=== PATIENT | male | born 1960 | race Caucasian/White ===

== ENCOUNTER 2016-06-25 14:14 | Emergency (ER) | payer BC, OTHER ==
[~2016-06-25] VITALS: Ht 170.2 cm; Wt 86.2 kg
[2016-06-25 14:21] VITALS: BP 113/66
--- NOTE | 2016-06-25 15:02 | NUR ---
VONA AFTER SUDDEN ONSET OF DIZZINESS WHILE SHOPPING AT MALL. PT STATES HE VOMITED X1. HX PROSTATE CA, MULTIPLE BACK SURGERIES AND CHRONIC BACK PAIN.SKIN IS pale /WARM/DRY; AAOX4 WITH EVEN AND STEADY GAIT; LUNGS CLEAR BL; HR EVEN AND REGULAR; PT DENIES ANY FEVER, CP, SOB, OR COUGH AT THIS TIME; PATIENT STATES PAIN OF 2/10 AT THIS TIME; PATIENT POSITIONED FOR COMFORT; HOB ELEVATED; BEDRAILS UP X2; BED DOWN. noted also portacath on righr chest,pt verbalized just no balance [place] in the [place].
--- NOTE | 2016-06-25 15:11 | NUR ---
dr. mendosa at bedside, md aware bs [id number]
--- NOTE | 2016-06-25 15:16 | NUR ---
xray at bedside
[2016-06-25] MEDS ORDERED: NACL 0.9% 1,000 ML IV ONE (15:30)
[2016-06-25] MEDS ORDERED: KETOROLAC 30 MG/ML VIAL IVP ONE (15:30)
--- NOTE | 2016-06-25 16:05 | NUR ---
PT PREFER TO ACCESS RODRIGO CATH THAN INSERT AN IVLINE
--- NOTE | 2016-06-25 16:12 | NUR ---
LAB AT BEDSIDE
--- NOTE | 2016-06-25 16:32 | NUR ---
PT AAO, IVF ONGOING WELL TOLERATED VIA RIGHT CHEST RODRIGO CATH
--- NOTE | 2016-06-25 17:19 | NUR ---
TALKED TO PT MADE AWARE PT FOR D/C, PT VERBALIZED CAN I JUST TAKE A SHORT NAP PLEASE, FEW MINUTES, EXPLAIN WILL COME BACK AGAIN TO CHECK ON HIM.
[2016-06-25 17:42] VITALS: BP 141/94
--- NOTE | 2016-06-25 17:42 | NUR ---
FLUSHED RODRIGO CATH WITH 20ML NS BEFORE DISCONTINUE, Patient discharged with v/s stable. Written and verbal after care instructions given and explained. Patient verbalized understanding. Ambulatory with steady gait. All questions addressed prior to discharge. Advised to follow up with PMD. AND PT AGREED WITH IT.
== END 2016-06-25 17:40 | disposition home or self-care (01) ==
LOC: MED 14:14
DX: R55 Syncope and collapse (principal); C18.9 Malignant neoplasm of colon, unspecified
CPT/HCPCS: 36415; 70450; 71010; 80053; 82948; 84484; 85025; 85610; 85730; 93005; 96361; 96374; 99285; J1885; J7030; Q0092